=== PATIENT | male | born 1995 | race Caucasian/White ===

== ENCOUNTER 2024-11-29 10:42 | Emergency (ER) | payer OTHER, SELFPAY ==
[2024-11-29 11:07] VITALS: BP 134/80; PULSE 90; RESP 20; TEMP 37.1; O2SAT 99
--- NOTE | 2024-11-29 13:14 | ED_ITS ---
HPI - Dental/Oral General Chief complaint: Dental/Oral Stated complaint: dental pain Time Seen by Provider: 11/29/24 13:15 Source: patient Mode of arrival: ambulatory Limitations: no limitations History of Present Illness HPI Narrative: Patient is a 29 y/o male who presents to the ED with c/o dental pain. Patient reports having dental pain over the last couple of days along his left upper teeth, particularly tooth # 10 and 11. Woke up this morning 345 am with increased pain. Has not taken anything for pain today. Took ibuprofen and used oragel last night. Reports trouble eating or drinking d/t pain, hot/cold sensitivity. Has long hx of dental issues. Does not currently see a dentist. Denies fevers, SOB, vomiting. Related Data Allergies Allergy/AdvReac Type Severity Reaction Status Date / Time No Known Allergies Allergy Verified 11/29/24 10:44 Review of Systems Review of Systems: All systems reviewed & are unremarkable except as noted in HPI. All systems reviewed & are unremarkable except as noted in HPI and below Exam Narrative: GENERAL: Well appearing, well-nourished, non-toxic, in no acute distress. HEAD: Normocephalic, atraumatic. ENT: Diffuse dental decay, nearly all teeth are eroded down to the gumline. Tooth # 10 fractured and jagged edge. Focal TTP surrounding upper gumline around teeth #10/11, mild inflammation of gumline. No focal abscess or fluctuance. No trismus or malocclusion. MMs moist. RESPIRATORY: Airway patent, respirations nonlabored. No distress. CARDIOVASCULAR: Regular rate and rhythm MUSCULOSKELETAL: Moves all extremities. No gross deformities. SKIN: Warm, dry, normal color. NEURO: A&O X3. Speech clear. PSYCHIATRIC: Appropriate mood and affect. Normal interaction. Course Vital Signs Vital signs: Vital Signs Temperature 98.7 F 11/29/24 11:07 Pulse Rate 90 11/29/24 11:07 Respiratory Rate 20 11/29/24 11:07 Blood Pressure 134/80 11/29/24 11:07 Pulse Oximetry 99 11/29/24 11:07 Oxygen Delivery Room Air 11/29/24 11:07 Temperature 98.7 F 11/29/24 11:07 Pulse Rate 90 11/29/24 11:07 Respiratory Rate 20 11/29/24 11:07 Blood Pressure 134/80 11/29/24 11:07 Pulse Oximetry 99 11/29/24 11:07 Oxygen Delivery Room Air 11/29/24 11:07 MDM - Dental/Oral MDM Narrative Medical decision making narrative: Patient's pain is consistent with dental caries. There are no focal signs of space-occupying abscess. The patient is controlling secretions well without signs of airway compromise. Patient is felt reasonable for outpatient follow-up with dental evaluation. Will be started on augmentin. Will d/c with a few pain pills for home as well as abx mouthwash. Advised to follow-up with dentist for further evaluation. Given return precautions. Discharged in stable condition. Medical Records Attestation: I reviewed the patient's medical records. Discharge Plan Discharge Clinical Impression: Dental caries, Toothache Patient Disposition: Home, Self-Care Condition: Stable Instructions: Antibiotic Form, Toothache (ED) Additional Instructions: Take antibiotics as prescribed. You may also use antibiotic mouthwash twice daily. Continue Tylenol and ibuprofen as needed for pain. [place] as needed for more severe pain. Follow-up with dentist for further evaluation. Return to the ED if you experience worsening or severe symptoms, difficulty breathing, difficulty swallowing, unable to keep down food or drink, or any other symptoms of concern. Patient Language: [place] Prescriptions: New hydrocodone-acetaminophen 5-325 mg tablet 1 tablet PO Q6H PRN (Reason: pain) Qty: 5 0RF amoxicillin-pot clavulanate 875-125 mg tablet 1 tablet PO Q12H 7 Days Qty: 14 0RF chlorhexidine gluconate 0.12 % mouthwash 15 ml buccal BID Qty: 120 0RF Follow-up/Referrals: PHYSICIAN NOT ON STAFF,NONSTAFF [Primary Care Provider] - Time of Disposition: 13:23
[2024-11-29] MEDS: HYDROcodone/acetaminophen (*CRX) 5-325 MG TABLET 1 TAB PO (13:37)
[2024-11-29] MEDS: AMOXICILLIN/CLAVULANATE K 875-125 MG TAB 1 TABLET PO (13:38)
== END 2024-11-29 13:43 | disposition home or self-care (01) ==
PROVIDERS: Emergency Provider Physician Assistant
DX: K02.9 Dental caries, unspecified (principal)
CPT/HCPCS: 99283; A9270